=== PATIENT | female | born 1935 | race Caucasian/White ===

== ENCOUNTER → 2017-02-21 | Outpatient (CLI) | payer MEDICARE, BC | LOC: MW.CHPS 08:00 | PROVIDERS: ATTEND Plastic Surgery | DX: L71.9 Rosacea, unspecified (principal); L57.0 Actinic keratosis; L30.9 Dermatitis, unspecified; L85.3 Xerosis cutis | CPT/HCPCS: 99214 ==

== ENCOUNTER 2017-07-22 12:30 | Emergency (ER) | payer MEDICARE, BC ==
--- NOTE | 2017-07-22 13:06 | EDM.PDOC ---
ED HPI GENERAL MEDICAL PROBLEM - General Chief Complaint: Bite:Animal, Insect Stated Complaint: LT HAND BEE STING ALGERGIC Time Seen by Provider: 07/22/17 12:51 - History of Present Illness INITIAL COMMENTS - FREE TEXT/NARRATIVE: HISTORY AND PHYSICAL: History of present illness: Patient is an 82-year-old white female presents status post bee sting to her left hand she has a significant allergy to these although did not manifest any significant symptoms her EpiPen was she did not utilize it upon arrival here she is without symptoms other than the Sting to her left hand. Review of systems: As per history of present illness and below otherwise all systems reviewed and negative. Past medical history: As per history of present illness and as reviewed below otherwise noncontributory. Surgical history: As per history of present illness and as reviewed below otherwise noncontributory. Social history: No reported history of drug or alcohol abuse. Family history: As per history of present illness and as reviewed below otherwise noncontributory. Physical exam: HEENT: Atraumatic, normocephalic, pupils reactive, negative for conjunctival pallor or scleral icterus, mucous membranes moist, throat clear, neck supple, nontender, trachea midline. Lungs: Clear to auscultation, breath sounds equal bilaterally, chest nontender. Heart: S1S2, regular, negative for clicks, rubs, or JVD. Abdomen: Soft, nondistended, nontender. Negative for masses or hepatosplenomegaly. Negative for costovertebral tenderness. Pelvis: Stable nontender. Genitourinary: Deferred. Rectal: Deferred. Extremities: Atraumatic, negative for cords or calf pain. Neurovascular unremarkable. Neuro: Awake, alert, oriented. Cranial nerves II through XII unremarkable. Cerebellum unremarkable. Motor and sensory unremarkable throughout. Exam nonfocal. Diagnostics: None Therapeutics: Prednisone 40 mg by mouth Benadryl and 25 mg by mouth Impression: bee sting l hand Definitive disposition and diagnosis as appropriate pending reevaluation and review of above left 5th finger Pain Score (Numeric/FACES): 3 - Related Data Allergies Allergy/AdvReac Type Severity Reaction Status Date / Time adhesive Allergy Rash Verified 07/22/17 12:39 banana [Banana] Allergy Stomach Verified 07/22/17 12:39 Ache latex Allergy Itching Verified 07/22/17 12:39 tomato [Tomato] Allergy Hives Verified 07/22/17 12:39 Bee stins Allergy Swelling Uncoded 07/22/17 12:39 Eggs Allergy Stomach Uncoded 07/22/17 12:39 Ache Metal Allergy Rash Uncoded 07/22/17 12:39 Home Meds: Home Meds ClonazePAM [KlonoPIN] 1 tab PO BEDTIME PRN 06/23/14 [History] Estrogens, Conjugated [Premarin Vaginal Crm] 1 applic VAG ASDIRECTED PRN [History] Hydrocortisone Acetate [Anucort-HC] 1 supp RECTAL Q6HR PRN 06/23/14 [History] Losartan [Cozaar] 1 tab PO BRK 06/23/14 [History] Zolpidem Tartrate 1 tab PO ASDIRECTED PRN 06/29/15 [History] Fish Oil/[place]-3 Fatty Acids [Fish Oil] 2 each PO DAILY 07/01/15 [History] Fluticasone Propionate [Flonase Allergy Relief] 1 inh INH ASDIRECTED PRN [History] Past Medical History - Past Health History Medical/Surgical History: Denies Medical/Surgical History Other HEENT History: "Sinus sickness" Other Respiratory History: She denies, reports smoked for 50 yrs, QUIT 10 yrs ago, current cough/drainage started last week-end but improving, Encouraged to drink plenty of water and if symptoms worsen to phone surgeon's office Gastrointestinal History: Reports: Hemorrhoids Other Gastrointestinal History: Indigestion. diverticulitis Other Musculoskeletal History: Foot surgery, back pain of recent Other Psychiatric History: More excitable as I have gotten older and been living alone Other Hematologic History: Blood transfusions post delivery Other Dermatologic History: Several areas removed and or treated with topical medications - Past Surgical History GI Surgical History: Reports: Cholecystectomy, Colonoscopy Other GI Surgeries/Procedures: Partial colectomy due to diverticulitis Other Female Surgeries/Procedures: Oophorectomy Other Neurological Surgeries/Procedures: Headache free currently Social & Family History - Tobacco Use Smoking Status *Q: Never Smoker Years of Tobacco use: 50 Used Tobacco, but Quit: Yes Month Tobacco Last Used: 10 yrs - Alcohol Use Days Per Week of Alcohol Use: 0 Number of Drinks Per Day: 0 Total Drinks Per Week: 0 - Recreational Drug Use Recreational Drug Use: No Drug Use in Last 12 Months: No ED ROS GENERAL - Review of Systems Review Of Systems: ROS reveals no pertinent complaints other than HPI. ED EXAM, ANIMAL BITE - Physical Exam Exam: See Below (dictated) Course - Vital Signs Last Recorded V/S: Last Vital Signs Temp 36.6 C 07/22/17 12:39 Pulse 71 07/22/17 12:39 Resp 20 07/22/17 12:39 BP 125/71 07/22/17 12:39 Pulse Ox 93 L 07/22/17 12:39 Departure - Departure Time of Disposition: 13:05 Disposition: Home, Self-Care 01 Condition: Good Clinical Impression: Bee sting - Discharge Information Referrals: PCP,None [Primary Care Provider] - Forms: ED Department Discharge Additional Instructions: The following information is given to patients seen in the emergency department who are being discharged to home. This information is to outline your options for follow-up care. We provide all patients seen in our emergency department with a follow-up referral. The need for follow-up, as well as the timing and circumstances, are variable depending upon the specifics of your emergency department visit. If you don't have a primary care physician on staff, we will provide you with a referral. We always advise you to contact your personal physician following an emergency department visit to inform them of the circumstance of the visit and for follow-up with them and/or the need for any referrals to a consulting specialist. The emergency department will also refer you to a specialist when appropriate. This referral assures that you have the opportunity for followup care with a specialist. All of these measure are taken in an effort to provide you with optimal care, which includes your followup. Under all circumstances we always encourage you to contact your private physician who remains a resource for coordinating your care. When calling for followup care, please make the office aware that this follow-up is from your recent emergency room visit. If for any reason you are refused follow-up, please contact the [facility] emergency department at and asked to speak to the emergency department charge nurse. EpiPen Medrol Benadryl as directed follow primary medical doctor 1-2 days return as needed as discussed
[2017-07-22] MEDS ORDERED: predniSONE 20 MG Tab PO ONE (13:07)
[2017-07-22] MEDS ORDERED: diphenhydrAMINE 25 MG Cap PO ONE (13:08)
[2017-07-22 13:34] VITALS: BP 110/76
== END 2017-07-22 13:31 | disposition home or self-care (01) ==
LOC: MW.ED 12:30
DX: T63.441A Toxic effect of venom of bees, accidental (unintentional), initial encounter (principal); Z91.040 Latex allergy status; Z90.49 Acquired absence of other specified parts of digestive tract
CPT/HCPCS: 99282; A9270

== ENCOUNTER 2020-07-31 19:11 | Emergency (ER) | payer MEDICARE, BC ==
--- NOTE | 2020-07-31 19:25 | EDM.PDOC ---
ED HPI GENERAL MEDICAL PROBLEM - General Chief Complaint: ENT Problem Stated Complaint: TOOTH INFECTION Time Seen by Provider: 07/31/20 19:24 Source of Information: Reports: Patient History Limitations: Reports: No Limitations - History of Present Illness INITIAL COMMENTS - FREE TEXT/NARRATIVE: HISTORY AND PHYSICAL: History of present illness: Patient is an 84-year-old female who presents to the emergency room with complaints of left upper posterior dental pain and swelling. She has had this dental pain for approximately a week and was placed on amoxicillin 5 days ago by her dentist. She feels the abscess is not improving and she needs antibiotics which. She does have an appointment tomorrow with an carton counter feeder in [place]. Patient denies any fever, chills, headache, change in vision, syncope or near syncope. Denies any chest pain, back pain, shortness of breath or cough. Denies any abdominal pain, nausea, vomiting, diarrhea, constipation or dysuria. Patient has been eating and drinking appropriately. Review of systems: As per history of present illness and below otherwise all systems reviewed and negative. Past medical history: As per history of present illness and as reviewed below otherwise noncontributory. Surgical history: As per history of present illness and as reviewed below otherwise noncontributory. Social history: See social history for further information Family history: As per history of present illness and as reviewed below otherwise noncontributory. Physical exam: General: Well developed and well nourished. Alert and orientated x 3. Nontoxic in appearance and in no acute distress. Vital signs are stable and have been reviewed by me. Nursing notes were reviewed. HEENT: Atraumatic, normocephalic, pupils equal and reactive bilaterally, negative for conjunctival pallor or scleral icterus, mucous membranes moist, left upper posterior molar decay with gum swelling that is visible when looking at the face. Mild swelling noted to upper left cheek with tenderness. No floor tenderness. TMs normal bilaterally, throat clear, neck supple, nontender, trachea midline. No drooling or trismus noted. No meningeal signs. No hot potato voice noted. Lungs: Clear to auscultation, breath sounds equal bilaterally, chest nontender. Normal work of breathing, no accessory muscles used. Heart: S1S2, regular rate and rhythm without overt murmur Abdomen: Soft, nondistended, nontender. Skin: Intact, warm, dry. No lesions or rashes noted. Hematologic: No petechiae or purpra. Mucosa appropriate color and normal nail bed color and refill. Extremities: Atraumatic, moves all extremities per self without difficulty or deficits, negative for cords or calf pain. Neurovascular unremarkable. Neuro: Awake, alert, oriented. Cranial nerves II through XII unremarkable. Cerebellum unremarkable. Motor and sensory unremarkable throughout. Exam nonfocal. Psychiatric: Mood and affect are appropriate. Normal thought process. Answering questions appropriately. Notes: No concerns for Ludwigs Angina. Her CBC is slightly elevated, will switch her to clindamycin. Reassessment at the time of disposition demonstrates that the patient is in no acute distress. The patient is stable for discharge, counseling was provided and we discussed in great detail signs and symptoms that would prompt them to return to the Emergency Department. Medication, follow up and supportive care measures were reviewed and discussed. Voices understanding and is agreeable to plan of care. Denies any further questions or concerns at this time. Diagnostics: CBC Therapeutics: Clindamycin Prescription: Clindamycin Impression: Dental abscess Plan: 1. Please take the Clindamycin antibiotic as prescribed. (You can stop the Amoxicillin) 2. Tylenol and/or ibuprofen as needed for pain management. "Tooth Balls" have been given to you; apply along the gumline every 2-3 hours as needed. Do not swallow these; external use only. 3. Follow-up with a dentist for definitive care. Return to the ED as needed and as discussed. Definitive disposition and diagnosis as appropriate pending reevaluation and review of above. Left Upper Tooth/Teeth Pain Score (Numeric/FACES): 8 - Related Data Allergies Allergy/AdvReac Type Severity Reaction Status Date / Time adhesive Allergy Rash Verified 07/31/20 19:26 banana [Banana] Allergy Stomach Verified 07/31/20 19:26 Ache latex Allergy Itching Verified 07/31/20 19:26 meloxicam Allergy Rash Verified 07/31/20 19:26 tomato [Tomato] Allergy Hives Verified 07/31/20 19:26 Eggs Allergy Stomach Uncoded 07/31/20 19:26 Ache Metal Allergy Rash Uncoded 07/31/20 19:26 wasp stings Allergy Anaphylactic Uncoded 07/31/20 19:26 Shock Home Meds: Home Meds ClonazePAM [KlonoPIN] 1 tab PO BEDTIME PRN 06/23/14 [History] Hydrocortisone Acetate [Anucort-HC] 1 supp RECTAL Q6HR PRN 06/23/14 [History] Losartan [Cozaar] 1 tab PO BRK 06/23/14 [History] Zolpidem Tartrate 1 tab PO ASDIRECTED PRN 06/29/15 [History] Fish Oil/[place]-3 Fatty Acids [Fish Oil] 2 each PO DAILY 07/01/15 [History] Fluticasone Propionate [Flonase Allergy Relief] 1 inh INH ASDIRECTED PRN 09/23/15 [History] Acetaminophen 1 - 2 tab PO ASDIRECTED PRN 09/30/18 [History] Aspirin [Adult Aspirin] 81 mg PO DAILY 09/30/18 [History] Psyllium Husk (With Sugar) [Metamucil Powder] 1 dose PO DAILY 09/30/18 [History] Sertraline HCl 5 mg PO DAILY 09/30/18 [History] diphenhydrAMINE [Benadryl] 1 tab PO Q4H PRN 09/30/18 [History] Clindamycin HCl 300 mg PO Q6HR 5 Days #20 capsule 07/31/20 [Rx] Past Medical History - Past Health History Medical/Surgical History: Denies Medical/Surgical History HEENT History: Reports: Other (See Below) Other HEENT History: "Sinus sickness" Cardiovascular History: Reports: Heart Murmur, High Cholesterol, Hypertension, Other (See Below) (aortic valve sclerosis) Respiratory History: Reports: None Other Respiratory History: She denies, reports smoked for 50 yrs, QUIT 10 yrs ago, current cough/drainage started last week-end but improving, Encouraged to drink plenty of water and if symptoms worsen to phone surgeon's office Gastrointestinal History: Reports: Celiac Disease, Chronic Diarrhea, Diverticulosis, GERD, Hemorrhoids Other Gastrointestinal History: Indigestion. 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: Musculoskeletal History: Reports: Back Pain, Chronic, Other (See Below) Other Musculoskeletal History: Foot surgery, back pain of recent Psychiatric History: Reports: Anxiety, Depression Other Psychiatric History: More excitable as I have gotten older and been living alone Hematologic History: Reports: Blood Transfusion(s) Other Hematologic History: Blood transfusions post delivery Dermatologic History: Reports: Eczema Other Dermatologic History: Several areas removed and or treated with topical medications - Infectious Disease History Infectious Disease History: Reports: Chicken Pox, Measles, Mumps - Past Surgical History GI Surgical History: Reports: Cholecystectomy, Colonoscopy Other Neurological Surgeries/Procedures: Headache free currently Social & Family History - Family History Family Medical History: Noncontributory - Caffeine Use Caffeine Use: Reports: Coffee ED ROS ENT - Review of Systems Review Of Systems: Comprehensive ROS is negative, except as noted in HPI. ED EXAM, ENT - Physical Exam Exam: See Below (See dictation) Course - Vital Signs Last Recorded V/S: Last Vital Signs Temp 96.9 F 07/31/20 19:24 Pulse 102 H 07/31/20 19:24 Resp 18 07/31/20 19:24 BP 137/92 H 07/31/20 19:24 Pulse Ox 96 07/31/20 19:24 - Orders/Labs/Meds Labs: Laboratory Tests 07/31/20 Range/Units 20:00 WBC 12.19 H (4.0-11.0) K/uL RBC 4.75 (4.30-5.90) M/uL Hgb 15.0 (12.0-16.0) g/dL Hct 45.4 (36.0-46.0) % MCV 95.6 (80.0-98.0) fL MCH 31.6 (27.0-32.0) pg MCHC 33.0 (31.0-37.0) g/dL RDW Std Deviation 46.9 (28.0-62.0) fl RDW Coeff of [place] 13 (11.0-15.0) % Plt Count 313 (150-400) K/uL MPV 10.20 (7.40-12.00) fL Neut % (Auto) 82.1 H (48.0-80.0) % Lymph % (Auto) 9.8 L (16.0-40.0) % Thayer % (Auto) 7.9 (0.0-15.0) % Eos % (Auto) 0.1 (0.0-7.0) % Baso % (Auto) 0.1 (0.0-1.5) % Neut # (Auto) 10.0 H (1.4-5.7) K/uL Lymph # (Auto) 1.2 (0.6-2.4) K/uL Thayer # (Auto) 1.0 H (0.0-0.8) K/uL Eos # (Auto) 0.0 (0.0-0.7) K/uL Baso # (Auto) 0.0 (0.0-0.1) K/uL Nucleated RBC % 0.0 /100WBC Nucleated RBCs # 0 K/uL Meds: Medications Discontinued Medications Generic Name Dose Route Start Last Admin Trade Name Candido PRN Reason Stop Dose Admin Clindamycin HCl 600 mg 07/31/20 20:02 07/31/20 20:12 Cleocin PO 07/31/20 20:03 600 mg ONETIME ONE Administration Departure - Departure Time of Disposition: 20:14 Disposition: Home, Self-Care 01 Clinical Impression: Dental abscess - Discharge Information Prescriptions: Clindamycin HCl 300 mg PO Q6HR 5 Days #20 capsule Instructions: Dental Abscess, [id number] Referrals: yLssa Romero PA [Primary Care Provider] - Forms: ED Department Discharge Additional Instructions: The following information is given to patients seen in the emergency department who are being discharged to home. This information is to outline your options for follow-up care. We provide all patients seen in our emergency department with a follow-up referral. The need for follow-up, as well as the timing and circumstances, are variable depending upon the specifics of your emergency department visit. If you don't have a primary care physician on staff, we will provide you with a referral. We always advise you to contact your personal physician following an emergency department visit to inform them of the circumstance of the visit and for follow-up with them and/or the need for any referrals to a consulting specialist. The emergency department will also refer you to a specialist when appropriate. This referral assures that you have the opportunity for follow-up care with a specialist. All of these measure are taken in an effort to provide you with optimal care, which includes your follow-up. Under all circumstances we always encourage you to contact your private physician who remains a resource for coordinating your care. When calling for follow-up care, please make the office aware that this follow-up is from your recent emergency room visit. If for any reason you are refused follow-up, please contact the [facility] Emergency Department at and asked to speak to the emergency department charge nurse. [facility] [address] [place] [address] [facility] [address] [place] [address] Thank you for choosing the [facility] emergency department in [place] for your medical needs today. It was a pleasure caring for you. Today you were seen in the emergency department for dental abscess. 1. Please take the antibiotic as prescribed. (Stop the Amoxicillin) 2. Tylenol and/or ibuprofen as needed for pain management. "Tooth Balls" have been given to you; apply along the gumline every 2-3 hours as needed. Do not swallow these; external use only. 3. Follow-up with a dentist for definitive care. Return to the ED as needed and as discussed. Sepsis Event Note (ED) - Focused Exam Vital Signs: Vital Signs Temp Pulse Resp BP Pulse Ox 07/31/20 19:24 96.9 F 102 H 18 137/92 H 96
[2020-07-31] MEDS ORDERED: Clindamycin HCl 150 MG Cap PO ONE (20:02)
[2020-07-31] MEDS ORDERED: Lidocaine 2% Viscous Solution 15 ML Cup PO ONE (20:15)
[2020-07-31] MEDS ORDERED: Benzocaine 20% Topical Spray UD MUCMEM ONE (20:15)
[2020-07-31 20:34] VITALS: BP 145/95; PULSE 112
== END 2020-07-31 20:30 | disposition home or self-care (01) ==
LOC: MW.ED 19:11
DX: K04.7 Periapical abscess without sinus (principal); F41.9 Anxiety disorder, unspecified; F32.9 Major depressive disorder, single episode, unspecified; K21.9 Gastro-esophageal reflux disease without esophagitis; E78.00 Pure hypercholesterolemia, unspecified; I10 Essential (primary) hypertension; Z79.899 Other long term (current) drug therapy; Z79.82 Long term (current) use of aspirin; Z91.040 Latex allergy status; Z91.018 Allergy to other foods; Z88.6 Allergy status to analgesic agent; Z91.012 Allergy to eggs; Z91.038 Other insect allergy status
CPT/HCPCS: 36415; 85025; 99283; A9270

== ENCOUNTER 2021-11-27 10:31 | Emergency (ER) | payer MEDICARE, BC | END 2021-11-27 13:42 | disposition left against medical advice (07) | LOC: MW.ED 10:31 | DX: Z53.21 Procedure and treatment not carried out due to patient leaving prior to being seen by health care provider (principal) ==

== ENCOUNTER 2022-03-30 12:16 | Emergency (ER) | payer MEDICARE, BC ==
[2022-03-30] MEDS ORDERED: Acetaminophen 500 MG Tab PO ONE (12:54)
[2022-03-30 13:56] LABS: CARBON DIOXIDE,CO2 27.4 mmol/L (21.0-32.0); POTASSIUM,K 3.8 mmol/L (3.5-5.1)
[2022-03-30 16:43] VITALS: BP 144/83; PULSE 67
== END 2022-03-30 15:45 | disposition home or self-care (01) ==
LOC: MW.ED 12:16
DX: S00.83XA Contusion of other part of head, initial encounter (principal); I10 Essential (primary) hypertension; Z90.49 Acquired absence of other specified parts of digestive tract; Z79.899 Other long term (current) drug therapy; Z79.82 Long term (current) use of aspirin; Z91.048 Other nonmedicinal substance allergy status; Z91.040 Latex allergy status; Z91.018 Allergy to other foods; Z91.012 Allergy to eggs; Z88.6 Allergy status to analgesic agent; Z91.030 Bee allergy status
CPT/HCPCS: 36415; 70450; 71045; 72125; 80053; 83735; 84443; 84484; 85025; 93005; 99284; A9270

== ENCOUNTER 2022-04-10 18:30 | Emergency (ER) | payer MEDICARE, BC ==
[2022-04-10] MEDS ORDERED: Diphtheria,Pertussis(Acell),Tetanus Vaccine 0.5 ML Syringe IM ONE (18:47)
[2022-04-10] MEDS ORDERED: Lidocaine/Epineph/Tetracaine 3 ML Syringe TOP ONE (19:22)
[2022-04-10 21:05] VITALS: BP 128/75; PULSE 76
== END 2022-04-10 21:05 | disposition home or self-care (01) ==
LOC: MW.ED 18:30
DX: S01.01XA Laceration without foreign body of scalp, initial encounter (principal); I10 Essential (primary) hypertension; E78.00 Pure hypercholesterolemia, unspecified; K21.9 Gastro-esophageal reflux disease without esophagitis; E03.9 Hypothyroidism, unspecified; Z23 Encounter for immunization; Z88.8 Allergy status to other drugs, medicaments and biological substances; Z88.0 Allergy status to penicillin; Z79.899 Other long term (current) drug therapy; Z79.82 Long term (current) use of aspirin; W19.XXXA Unspecified fall, initial encounter
CPT/HCPCS: 12002; 70450; 72125; 90471; 90715; 99284; A9270

== ENCOUNTER 2022-06-24 14:33 | Inpatient (IN) | payer MEDICARE, BC ==
[2022-06-24] MEDS ORDERED: Sodium Chloride 0.9% 1,000 ML IV ONE (14:36)
[2022-06-24] MEDS ORDERED: Sodium Chloride 0.9% 10 ML Syringe FLUSH PRN (14:36)
[2022-06-24] MEDS ORDERED: Sodium Chloride 0.9% 2.5 ML Syringe FLUSH PRN (14:36)
[2022-06-24] MEDS ORDERED: Ondansetron 4 MG/2 ML SDV IVPUSH ONE (14:49)
[2022-06-24 15:23] LABS: CARBON DIOXIDE,CO2 24.5 mmol/L (21.0-32.0); POTASSIUM,K 4.2 mmol/L (3.5-5.1)
[2022-06-24] MEDS ORDERED: Dexamethasone 4 MG/ML SDV IVPUSH ONE (15:59)
[2022-06-24] MEDS ORDERED: REMDESIVIR 200 MG in Sodium Chloride 0.9% 250 ML IV ONE ×2 (15:59→17:45)
[2022-06-24] MEDS ORDERED: Ondansetron 4 MG/2 ML SDV IVPUSH PRN (16:50)
[2022-06-24] MEDS ORDERED: Albuterol/Ipratropium 3.0-0.5 MG/3 ML Neb Soln NEB PRN (16:50)
[2022-06-24] MEDS ORDERED: ClonazePAM 1 MG Tab PO PRN (17:37)
[2022-06-24] MEDS: Enoxaparin 40 MG/0.4 ML Syringe SUBCUT SCH (18:18)
[2022-06-25] MEDS: Levothyroxine 25 MCG Tab PO SCH ×2 (06:26→06:49)
[2022-06-25 07:30] LABS: CARBON DIOXIDE,CO2 28.1 mmol/L (21.0-32.0); POTASSIUM,K 4.2 mmol/L (3.5-5.1)
[2022-06-25] MEDS ORDERED: Magnesium Sulfate/Water 2 GM in Premix Bag 1 BAG IV ONE (09:04)
[2022-06-25] MEDS: Sertraline 50 MG Tab PO SCH (09:43)
[2022-06-25] MEDS: Dexamethasone 4 MG Tab PO SCH (09:43)
[2022-06-25] MEDS: Aspirin 81 MG Tab.EC PO SCH (09:43)
[2022-06-25] MEDS: Tolterodine 2 MG Cap.ER PO SCH (09:44)
[2022-06-25] MEDS ORDERED: REMDESIVIR 100 MG in Sodium Chloride 0.9% 100 ML IV SCH (18:00)
[2022-06-25] MEDS: Enoxaparin 40 MG/0.4 ML Syringe SUBCUT SCH (20:15)
[2022-06-26] MEDS: Levothyroxine 25 MCG Tab PO SCH (06:34)
[2022-06-26 07:39] LABS: CARBON DIOXIDE,CO2 26.7 mmol/L (21.0-32.0); POTASSIUM,K 3.9 mmol/L (3.5-5.1)
[2022-06-26] MEDS: Dexamethasone 4 MG Tab PO SCH (08:11)
[2022-06-26] MEDS: Tolterodine 2 MG Cap.ER PO SCH (08:12)
[2022-06-26] MEDS: Sertraline 50 MG Tab PO SCH (08:12)
[2022-06-26] MEDS: Aspirin 81 MG Tab.EC PO SCH (08:12)
[2022-06-26 11:35] VITALS: BP 112/67; PULSE 59
== END 2022-06-26 14:40 | disposition home or self-care (01) | DRG 177 ==
LOC: MW.ED 14:33 → MW.MS 15:58
PROVIDERS: ADMIT Student in an Organized Health Care Education/Training Program; ATTEND Family Medicine
PROC: XW033E5 Introduction of Remdesivir Anti-infective into Peripheral Vein, Percutaneous Approach, New Technology Group 5 (ICD-10-PCS; principal; 2022-06-24)
PROC: 3E0333Z Introduction of Anti-inflammatory into Peripheral Vein, Percutaneous Approach (ICD-10-PCS; 2022-06-24)
PROC: 3E0DX3Z Introduction of Anti-inflammatory into Mouth and Pharynx, External Approach (ICD-10-PCS; 2022-06-25)
DX: U07.1 COVID-19 (principal); R09.02 Hypoxemia; J96.01 Acute respiratory failure with hypoxia; I10 Essential (primary) hypertension; F32.A Depression, unspecified; K21.9 Gastro-esophageal reflux disease without esophagitis; K90.0 Celiac disease; E03.9 Hypothyroidism, unspecified; E78.00 Pure hypercholesterolemia, unspecified; M54.9 Dorsalgia, unspecified; Z79.899 Other long term (current) drug therapy; G89.29 Other chronic pain; Z91.038 Other insect allergy status; F41.9 Anxiety disorder, unspecified; Z88.8 Allergy status to other drugs, medicaments and biological substances; K57.90 Diverticulosis of intestine, part unspecified, without perforation or abscess without bleeding; Z91.048 Other nonmedicinal substance allergy status; Z91.040 Latex allergy status; Z91.012 Allergy to eggs; Z91.018 Allergy to other foods; Z91.030 Bee allergy status; Z79.82 Long term (current) use of aspirin; Z79.890 Hormone replacement therapy; Z87.891 Personal history of nicotine dependence; Z90.49 Acquired absence of other specified parts of digestive tract; Z90.710 Acquired absence of both cervix and uterus
CPT/HCPCS: 36415; 80053; 82803; 83605; 84484; 85025; 93005; J2405; J3490; J7030; U0002; 71045; 71045-26; 83735; 93010; 96374; 97162-GP; 99284; 99285-25; A9270-GY; J0248; J1100; J1650; J3475; J7050; J8540

== ENCOUNTER 2022-11-15 11:22 | Inpatient (IN) | payer MEDICARE, BC ==
[2022-11-15 12:25] LABS: CORONAVIRUS COVID-19 NAA NEGATIVE (NEGATIVE); INFLUENZA A NAA NEGATIVE (NEGATIVE); INFLUENZA B NAA NEGATIVE (NEGATIVE); RESPIRATORY SYNCYTIAL VIR NAA NEGATIVE (NEGATIVE)
[2022-11-15 12:29] LABS: CARBON DIOXIDE,CO2 27.8 mmol/L (21.0-32.0); POTASSIUM,K 4.5 mmol/L (3.5-5.1)
[2022-11-15] MEDS ORDERED: Iopamidol 755 MG/ML 500 ML Multipack Bottle IVPUSH ONE (16:53)
[2022-11-15] MEDS ORDERED: metroNIDAZOLE/Normal Saline 500 MG in Premix Bag 1 BAG IV ONE (19:44)
[2022-11-15] MEDS: cefTRIAXone 1 GM in Sodium Chloride 0.9% 50 ML IV ONE ×2 (20:38→21:08)
[2022-11-15] MEDS: Azithromycin 500 MG in Sodium Chloride 0.9% 250 ML IV SCH (23:49)
[2022-11-16] MEDS ORDERED: Sodium Chloride 0.9% 2.5 ML Syringe FLUSH PRN (08:28)
[2022-11-16] MEDS ORDERED: Sodium Chloride 0.9% 10 ML Syringe FLUSH PRN (08:28)
[2022-11-16] MEDS ORDERED: Albuterol/Ipratropium 3.0-0.5 MG/3 ML Neb Soln NEB PRN (08:30)
[2022-11-16] MEDS ORDERED: Acetaminophen 325 MG Tab PO PRN (08:45)
[2022-11-16] MEDS ORDERED: Ondansetron 4 MG/2 ML SDV IVPUSH PRN (08:45)
[2022-11-16] MEDS ORDERED: tiZANidine 4 MG Tab PO PRN (09:00)
[2022-11-16] MEDS ORDERED: Polyethylene Glycol 3350 Powder 17 GM Packet PO PRN (09:00)
[2022-11-16] MEDS: Sertraline 50 MG Tab PO SCH (10:01)
[2022-11-16] MEDS: Aspirin 81 MG Tab.EC PO SCH (10:01)
[2022-11-16] MEDS ORDERED: cefTRIAXone 1 GM in Sodium Chloride 0.9% 50 ML IV SCH (20:00)
[2022-11-16] MEDS ORDERED: TOLTERODINE TARTRATE 4 MG PO SCH (21:00)
[2022-11-16] MEDS ORDERED: ClonazePAM 1 MG Tab PO PRN (21:00)
[2022-11-16] MEDS: Azithromycin 500 MG in Sodium Chloride 0.9% 250 ML IV SCH (22:58)
[2022-11-17 06:52] LABS: CARBON DIOXIDE,CO2 28.4 mmol/L (21.0-32.0); POTASSIUM,K 3.8 mmol/L (3.5-5.1)
[2022-11-17] MEDS ORDERED: Levothyroxine 25 MCG Tab PO SCH (07:30)
[2022-11-17 07:58] VITALS: BP 166/92; PULSE 89
[2022-11-17] MEDS: Aspirin 81 MG Tab.EC PO SCH (08:33)
[2022-11-17] MEDS: Sertraline 50 MG Tab PO SCH (08:33)
== END 2022-11-17 11:40 | disposition home or self-care (01) | DRG 177 ==
LOC: MW.ED 11:22 → MW.MS 20:23
PROVIDERS: ADMIT Internal Medicine; ATTEND Internal Medicine
DX: J69.0 Pneumonitis due to inhalation of food and vomit (principal); J96.21 Acute and chronic respiratory failure with hypoxia; J18.9 Pneumonia, unspecified organism; Z20.822 Contact with and (suspected) exposure to COVID-19; E78.00 Pure hypercholesterolemia, unspecified; I10 Essential (primary) hypertension; K52.9 Noninfective gastroenteritis and colitis, unspecified; K21.9 Gastro-esophageal reflux disease without esophagitis; Z86.711 Personal history of pulmonary embolism; K57.90 Diverticulosis of intestine, part unspecified, without perforation or abscess without bleeding; G89.29 Other chronic pain; M54.9 Dorsalgia, unspecified; F41.9 Anxiety disorder, unspecified; F32.A Depression, unspecified; E03.9 Hypothyroidism, unspecified; Z86.19 Personal history of other infectious and parasitic diseases; Z90.49 Acquired absence of other specified parts of digestive tract; Z90.710 Acquired absence of both cervix and uterus; Z87.891 Personal history of nicotine dependence; Z91.09 Other allergy status, other than to drugs and biological substances; Z91.018 Allergy to other foods; Z91.040 Latex allergy status; Z91.038 Other insect allergy status; Z79.82 Long term (current) use of aspirin; Z79.890 Hormone replacement therapy; Z79.899 Other long term (current) drug therapy; R13.10 Dysphagia, unspecified
CPT/HCPCS: 0241U; 36415; 71045; 71275; 80048; 80053; 81001; 83605; 83735; 83880; 84100; 85025; 85379; 87040; 93306; 96365; 96368; 97110; 97161; 97530; 99285; A9270-GY; J0456; J0696; J3490; J7050; Q9967

== ENCOUNTER 2023-02-12 05:05 | Inpatient (IN) | payer MEDICARE, BC ==
[2023-02-12] MEDS ORDERED: Ondansetron 4 MG/2 ML SDV IVPUSH ONE (05:56)
[2023-02-12] MEDS ORDERED: fentaNYL 50 MCG/ML SDV IVPUSH ONE (05:56)
[2023-02-12 06:32] LABS: POTASSIUM,K 4.1 mmol/L (3.5-5.1)
[2023-02-12] MEDS ORDERED: HYDROmorphone 1 MG/ML Syringe IVPUSH ONE (07:58)
[2023-02-12] MEDS ORDERED: Iopamidol 755 MG/ML 500 ML Multipack Bottle IVPUSH STA (09:31)
[2023-02-12 09:37] LABS: CORONAVIRUS COVID-19 NAA NEGATIVE (NEGATIVE); INFLUENZA A NAA NEGATIVE (NEGATIVE); INFLUENZA B NAA NEGATIVE (NEGATIVE); RESPIRATORY SYNCYTIAL VIR NAA NEGATIVE (NEGATIVE)
[2023-02-12] MEDS ORDERED: Piperacillin/Tazobactam 3.375 GM in Sodium Chloride 0.9% 100 ML IV ONE (11:58)
[2023-02-12] MEDS ORDERED: methylPREDNISolone Sodium Succinate 125 MG/2 ML SDV IVPUSH ONE (12:15)
[2023-02-12] MEDS ORDERED: Metoclopramide 10 MG/2 ML SDV IVPUSH ONE (12:17)
[2023-02-12] MEDS: Albuterol/Ipratropium 3.0-0.5 MG/3 ML Neb Soln NEB ONE ×2 (12:30→15:25)
[2023-02-12] MEDS ORDERED: Sodium Chloride 0.9% 2.5 ML Syringe FLUSH PRN (13:04)
[2023-02-12] MEDS ORDERED: Docusate Sodium 100 MG Cap PO PRN (13:04)
[2023-02-12] MEDS ORDERED: Ondansetron 4 MG/2 ML SDV IVPUSH PRN (13:04)
[2023-02-12] MEDS ORDERED: Sodium Chloride 0.9% 10 ML Syringe FLUSH PRN (13:04)
[2023-02-12] MEDS ORDERED: Polyethylene Glycol 3350 Powder 17 GM Packet PO PRN (13:04)
[2023-02-12] MEDS ORDERED: Morphine 2 MG/ML SYRINGE IVPUSH PRN (13:04)
[2023-02-12] MEDS ORDERED: Acetaminophen 325 MG Tab PO SCH (13:15)
[2023-02-12] MEDS: Acetylcysteine 20% 200 MG/ML 4 ML Nebulizer Soln SDV NEB SCH ×2 (15:25→22:50)
[2023-02-12] MEDS: Piperacillin/Tazobactam 3.375 GM in Sodium Chloride 0.9% 100 ML IV SCH (18:24)
[2023-02-12] MEDS: Albuterol/Ipratropium 3.0-0.5 MG/3 ML Neb Soln NEB PRN (21:27)
[2023-02-12] MEDS: Acetaminophen 325 MG Tab PO SCH (21:27)
[2023-02-13] MEDS ORDERED: methylPREDNISolone Sodium Succinate 40 MG/1 ML SDV ONE (00:14)
[2023-02-13] MEDS: methylPREDNISolone Sodium Succinate 40 MG/1 ML SDV IVPUSH SCH ×2 (00:19→11:49)
[2023-02-13] MEDS ORDERED: Sodium Chloride 0.9% 100 ML ONE ×2 (00:38→05:20)
[2023-02-13] MEDS: Piperacillin/Tazobactam 3.375 GM in Sodium Chloride 0.9% 100 ML IV SCH ×2 (00:42→05:53)
[2023-02-13] MEDS ORDERED: Acetaminophen 325 MG Tab ONE (02:50)
[2023-02-13] MEDS: Acetaminophen 325 MG Tab PO SCH ×4 (03:14→20:44)
[2023-02-13 06:37] LABS: CARBON DIOXIDE,CO2 24.9 mmol/L (21.0-32.0); POTASSIUM,K 4.3 mmol/L (3.5-5.1)
[2023-02-13] MEDS ORDERED: Sodium Chloride 0.9% 1,000 ML IV ONE (08:00)
[2023-02-13] MEDS: Sertraline 50 MG Tab PO SCH (09:00)
[2023-02-13] MEDS: Heparin Sodium 5,000 Units/ML Vial SUBCUT SCH ×2 (10:31→20:45)
[2023-02-13] MEDS: Acetylcysteine 20% 200 MG/ML 4 ML Nebulizer Soln SDV NEB SCH ×4 (10:52→20:44)
[2023-02-13] MEDS: Piperacillin/Tazobactam 2.25 GM in Sodium Chloride 0.9% 50 ML IV SCH ×2 (11:49→18:09)
[2023-02-13] MEDS: Albuterol/Ipratropium 3.0-0.5 MG/3 ML Neb Soln NEB PRN ×2 (12:30→17:31)
[2023-02-13] MEDS: ClonazePAM 1 MG Tab PO PRN (20:44)
[2023-02-14] MEDS: Piperacillin/Tazobactam 2.25 GM in Sodium Chloride 0.9% 50 ML IV SCH ×4 (01:30→17:06)
[2023-02-14] MEDS: Acetaminophen 325 MG Tab PO SCH ×5 (01:31→20:46)
[2023-02-14] MEDS: methylPREDNISolone Sodium Succinate 40 MG/1 ML SDV IVPUSH SCH ×2 (01:31→11:35)
[2023-02-14] MEDS: oxyCODONE 5 MG Tab PO PRN (01:49)
[2023-02-14 06:31] LABS: CARBON DIOXIDE,CO2 27.6 mmol/L (21.0-32.0); POTASSIUM,K 4.2 mmol/L (3.5-5.1)
[2023-02-14] MEDS: Albuterol/Ipratropium 3.0-0.5 MG/3 ML Neb Soln NEB PRN ×4 (06:41→21:43)
[2023-02-14] MEDS: Acetylcysteine 20% 200 MG/ML 4 ML Nebulizer Soln SDV NEB SCH ×4 (06:42→21:44)
[2023-02-14] MEDS: Levothyroxine 25 MCG Tab PO SCH (06:43)
[2023-02-14] MEDS: Heparin Sodium 5,000 Units/ML Vial SUBCUT SCH ×2 (08:40→20:47)
[2023-02-14] MEDS: Sertraline 50 MG Tab PO SCH (08:40)
[2023-02-14] MEDS: tiZANidine 4 MG Tab PO PRN (20:46)
[2023-02-14] MEDS: ClonazePAM 1 MG Tab PO PRN (20:47)
[2023-02-15] MEDS: methylPREDNISolone Sodium Succinate 40 MG/1 ML SDV IVPUSH SCH (00:18)
[2023-02-15] MEDS: Piperacillin/Tazobactam 2.25 GM in Sodium Chloride 0.9% 50 ML IV SCH ×2 (00:18→05:24)
[2023-02-15] MEDS: Acetaminophen 325 MG Tab PO SCH ×4 (02:40→20:50)
[2023-02-15 06:41] LABS: CARBON DIOXIDE,CO2 27.6 mmol/L (21.0-32.0); POTASSIUM,K 4.7 mmol/L (3.5-5.1)
[2023-02-15] MEDS: Albuterol/Ipratropium 3.0-0.5 MG/3 ML Neb Soln NEB PRN (06:50)
[2023-02-15] MEDS: Acetylcysteine 20% 200 MG/ML 4 ML Nebulizer Soln SDV NEB SCH (06:50)
[2023-02-15] MEDS: Levothyroxine 25 MCG Tab PO SCH (06:50)
[2023-02-15] MEDS: predniSONE 20 MG Tab PO SCH (08:52)
[2023-02-15] MEDS: Pantoprazole 40 MG Tab.CR PO SCH (08:54)
[2023-02-15] MEDS: Sertraline 50 MG Tab PO SCH (08:57)
[2023-02-15] MEDS: Heparin Sodium 5,000 Units/ML Vial SUBCUT SCH ×2 (08:58→20:51)
[2023-02-15] MEDS ORDERED: Polyethylene Glycol 3350 Powder 17 GM Packet PO PRN (09:52)
[2023-02-15] MEDS: Amoxicillin/Clavulanate K 875-125 MG Tab PO SCH (16:18)
[2023-02-15] MEDS: ClonazePAM 1 MG Tab PO PRN (20:50)
[2023-02-15] MEDS: tiZANidine 4 MG Tab PO PRN (20:52)
[2023-02-16] MEDS: Acetaminophen 325 MG Tab PO SCH ×4 (02:43→20:09)
[2023-02-16] MEDS: Amoxicillin/Clavulanate K 875-125 MG Tab PO SCH ×2 (05:57→16:28)
[2023-02-16] MEDS ORDERED: Pantoprazole 40 MG Tab.CR ONE (06:39)
[2023-02-16] MEDS: Pantoprazole 40 MG Tab.CR PO SCH (06:41)
[2023-02-16] MEDS: Levothyroxine 25 MCG Tab PO SCH (06:42)
[2023-02-16 08:10] LABS: CARBON DIOXIDE,CO2 31.1 mmol/L (21.0-32.0); POTASSIUM,K 3.7 mmol/L (3.5-5.1)
[2023-02-16] MEDS: Sertraline 50 MG Tab PO SCH (08:30)
[2023-02-16] MEDS: Heparin Sodium 5,000 Units/ML Vial SUBCUT SCH ×2 (08:31→20:15)
[2023-02-16] MEDS: predniSONE 20 MG Tab PO SCH (08:31)
[2023-02-16] MEDS: ClonazePAM 1 MG Tab PO PRN (21:15)
[2023-02-17] MEDS: Acetaminophen 325 MG Tab PO SCH ×4 (01:41→21:33)
[2023-02-17] MEDS: Levothyroxine 25 MCG Tab PO SCH ×2 (06:12→06:42)
[2023-02-17] MEDS: Pantoprazole 40 MG Tab.CR PO SCH ×2 (06:12→06:42)
[2023-02-17] MEDS ORDERED: predniSONE 20 MG Tab ONE (08:57)
[2023-02-17] MEDS: Sertraline 50 MG Tab PO SCH (09:00)
[2023-02-17] MEDS: Heparin Sodium 5,000 Units/ML Vial SUBCUT SCH ×2 (09:00→21:35)
[2023-02-17] MEDS: predniSONE 20 MG Tab PO SCH (09:00)
[2023-02-17] MEDS: ClonazePAM 1 MG Tab PO PRN (21:33)
[2023-02-17] MEDS: Melatonin 3 MG Tab PO SCH (21:33)
[2023-02-17] MEDS: oxyCODONE 5 MG Tab PO PRN (23:57)
[2023-02-18] MEDS: Acetaminophen 325 MG Tab PO SCH ×4 (02:19→21:02)
[2023-02-18] MEDS: Levothyroxine 25 MCG Tab PO SCH (06:51)
[2023-02-18] MEDS ORDERED: predniSONE 20 MG Tab ONE (09:10)
[2023-02-18] MEDS ORDERED: Pantoprazole 40 MG Tab.CR ONE (09:10)
[2023-02-18] MEDS: predniSONE 20 MG Tab PO SCH (09:14)
[2023-02-18] MEDS: Sertraline 50 MG Tab PO SCH (09:14)
[2023-02-18] MEDS: Heparin Sodium 5,000 Units/ML Vial SUBCUT SCH ×2 (09:14→21:00)
[2023-02-18] MEDS: Pantoprazole 40 MG Tab.CR PO SCH (09:14)
[2023-02-18] MEDS: ClonazePAM 1 MG Tab PO PRN (21:00)
[2023-02-18] MEDS: Melatonin 3 MG Tab PO SCH (21:00)
[2023-02-19] MEDS: oxyCODONE 5 MG Tab PO PRN (00:26)
[2023-02-19] MEDS: Acetaminophen 325 MG Tab PO SCH ×2 (03:36→09:11)
[2023-02-19] MEDS: Levothyroxine 25 MCG Tab PO SCH (06:38)
[2023-02-19] MEDS ORDERED: Pantoprazole 40 MG Tab.CR PO SCH (07:30)
[2023-02-19] MEDS: Sertraline 50 MG Tab PO SCH (09:09)
[2023-02-19] MEDS: Heparin Sodium 5,000 Units/ML Vial SUBCUT SCH (09:10)
[2023-02-19] MEDS ORDERED: Calcium Carbonate 500 MG Tab.Chew PO PRN (09:55)
[2023-02-19 12:06] VITALS: BP 112/59; PULSE 73
== END 2023-02-19 13:58 | DRG 189 ==
LOC: MW.ED 05:05 → MW.MS 12:26
PROVIDERS: ADMIT Hospitalist; ATTEND Hospitalist
DX: J96.01 Acute respiratory failure with hypoxia (principal); J69.0 Pneumonitis due to inhalation of food and vomit; J84.9 Interstitial pulmonary disease, unspecified; S42.201A Unspecified fracture of upper end of right humerus, initial encounter for closed fracture; T17.590A Other foreign object in bronchus causing asphyxiation, initial encounter; J47.1 Bronchiectasis with (acute) exacerbation; N30.00 Acute cystitis without hematuria; N17.9 Acute kidney failure, unspecified; I10 Essential (primary) hypertension; E03.9 Hypothyroidism, unspecified; F41.9 Anxiety disorder, unspecified; F32.A Depression, unspecified; E78.00 Pure hypercholesterolemia, unspecified; G89.29 Other chronic pain; T17.908A Unspecified foreign body in respiratory tract, part unspecified causing other injury, initial encounter; M54.9 Dorsalgia, unspecified; Z20.822 Contact with and (suspected) exposure to COVID-19; J43.8 Other emphysema; I35.0 Nonrheumatic aortic (valve) stenosis; W19.XXXA Unspecified fall, initial encounter; Z79.82 Long term (current) use of aspirin; Z79.899 Other long term (current) drug therapy; Z91.012 Allergy to eggs; Z91.040 Latex allergy status; Z87.891 Personal history of nicotine dependence; Z88.8 Allergy status to other drugs, medicaments and biological substances; Z91.018 Allergy to other foods; Z90.49 Acquired absence of other specified parts of digestive tract; Z90.710 Acquired absence of both cervix and uterus; Z98.890 Other specified postprocedural states; Z90.721 Acquired absence of ovaries, unilateral
CPT/HCPCS: 0241U; 36415; 51798; 70450; 70450-26; 71045; 71045-26; 71275; 71275-26; 72125; 72125-26; 73020-26-RT; 73020-RT; 73060-26-RT; 73060-RT; 73200-26-RT; 73200-RT; 80048; 80053; 81001; 82947; 83605; 83735; 84484; 85025; 85379; 87040; 87086; 92610-GN; 93005; 93010; 94640; 96365; 96375; 97110-GP; 97161-GP; 97530-GP; 99285; 99285-25; A9270-GY; J1170; J1644; J2405; J2543; J2765; J2920; J2930; J3010; J3490; J7030; J7620-GY; Q9967; U0002

== ENCOUNTER 2023-07-24 23:35 | Observation (INO) | payer MEDICARE, BC ==
[2023-07-25] MEDS ORDERED: Ibuprofen 600 MG Tab PO ONE (02:29)
[2023-07-25] MEDS ORDERED: Acetaminophen 325 MG Tab PO PRN (05:17)
[2023-07-25] MEDS ORDERED: Sodium Chloride 0.9% 10 ML Syringe FLUSH PRN (08:08)
[2023-07-25] MEDS ORDERED: Sodium Chloride 0.9% 2.5 ML Syringe FLUSH PRN (08:08)
[2023-07-25] MEDS ORDERED: Ondansetron 4 MG/2 ML SDV IVPUSH PRN (08:15)
[2023-07-25 08:27] LABS: BASOPHILS PERCENT AUTO 0.5 % (0.0-1.5); EOSINOPHILS ABSOLUTE AUTO 0.2 K/uL (0.0-0.7); EOSINOPHILS PERCENT AUTO 2.6 % (0.0-7.0); HEMATOCRIT 38.1 % (36.0-46.0); HEMOGLOBIN 12.7 g/dL (12.0-16.0); LYMPHOCYTES ABSOLUTE AUTO 1.9 K/uL (0.6-2.4); LYMPHOCYTES PERCENT AUTO 29.5 % (16.0-40.0); MEAN CORPUSCULAR HEMOGLOBIN 29.5 pg (27.0-32.0); MEAN CORPUSCULAR HGB CONC 33.3 g/dL (31.0-37.0); MEAN CORPUSCULAR VOLUME 88.6 fL (80.0-98.0); MONOCYTES ABSOLUTE AUTO 0.6 K/uL (0.0-0.8); MONOCYTES PERCENT AUTO 9.6 % (0.0-15.0); NEUTROPHILS ABSOLUTE AUTO 3.8 K/uL (1.4-5.7); NEUTROPHILS PERCENT AUTO 57.8 % (48.0-80.0); NRBC ABSOLUTE 0 K/uL; PLATELET COUNT,PLT 270 K/uL (150-400); WHITE BLOOD CELL COUNT,WBC 6.55 K/uL (4.0-11.0)
[2023-07-25 08:48] LABS: CALCIUM 8.3 mg/dL (8.5-10.1); CARBON DIOXIDE,CO2 26.8 mmol/L (21.0-32.0); CREATININE 0.9 mg/dL (0.6-1.0); EST CRCL DRUG DOSING (CG) 35.05 mL/min; POTASSIUM,K 3.3 mmol/L (3.5-5.1)
[2023-07-25 11:59] VITALS: BP 135/90; PULSE 88
== END 2023-07-25 15:20 | disposition home health service (06) ==
LOC: MW.ED 23:35 → MW.MS 07-25 02:38
PROVIDERS: ADMIT Internal Medicine; ATTEND Internal Medicine
DX: M71.21 Synovial cyst of popliteal space [Baker], right knee (principal); R01.1 Cardiac murmur, unspecified; I10 Essential (primary) hypertension; E03.9 Hypothyroidism, unspecified; F41.9 Anxiety disorder, unspecified; F32.A Depression, unspecified; K21.9 Gastro-esophageal reflux disease without esophagitis; Z91.09 Other allergy status, other than to drugs and biological substances; Z88.8 Allergy status to other drugs, medicaments and biological substances; Z91.040 Latex allergy status; Z91.012 Allergy to eggs; Z91.018 Allergy to other foods; Z79.82 Long term (current) use of aspirin; Z79.890 Hormone replacement therapy; Z79.899 Other long term (current) drug therapy
CPT/HCPCS: 36415; 73562; 80048; 85025; 93971; 97162; 99285; A9270; G0378; 99283

== ENCOUNTER 2023-07-30 10:01 | Emergency (ER) | payer MEDICARE, BC ==
[2023-07-30] MEDS ORDERED: Acetaminophen/oxyCODONE 325-5 MG Tab PO ONE (10:07)
[2023-07-30 10:16] LABS: BASOPHILS PERCENT AUTO 0.4 % (0.0-1.5); EOSINOPHILS ABSOLUTE AUTO 0.3 K/uL (0.0-0.7); EOSINOPHILS PERCENT AUTO 4.2 % (0.0-7.0); HEMATOCRIT 36.3 % (36.0-46.0); HEMOGLOBIN 11.9 g/dL (12.0-16.0); LYMPHOCYTES ABSOLUTE AUTO 1.7 K/uL (0.6-2.4); LYMPHOCYTES PERCENT AUTO 24.1 % (16.0-40.0); MEAN CORPUSCULAR HEMOGLOBIN 29.2 pg (27.0-32.0); MEAN CORPUSCULAR HGB CONC 32.8 g/dL (31.0-37.0); MEAN CORPUSCULAR VOLUME 89.2 fL (80.0-98.0); MONOCYTES ABSOLUTE AUTO 0.5 K/uL (0.0-0.8); MONOCYTES PERCENT AUTO 7.3 % (0.0-15.0); NEUTROPHILS ABSOLUTE AUTO 4.6 K/uL (1.4-5.7); NRBC ABSOLUTE 0 K/uL; PLATELET COUNT,PLT 274 K/uL (150-400); RED BLOOD CELL COUNT 4.07 M/uL (4.30-5.90); WHITE BLOOD CELL COUNT,WBC 7.22 K/uL (4.0-11.0)
[2023-07-30 10:35] LABS: INR 1.17 (0.86-1.11); PTT,PARTIAL THROMBOPLSTIN TIME 29.1 SEC (23.9-30.7)
[2023-07-30 11:08] LABS: A/G RATIO 1.1 (0.9-1.6); ALBUMIN 3.4 g/dL (3.4-5.0); BILIRUBIN TOTAL 0.5 mg/dL (0.2-1.0); CALCIUM 8.7 mg/dL (8.5-10.1); CARBON DIOXIDE,CO2 28.8 mmol/L (21.0-32.0); EST CRCL DRUG DOSING (CG) 34.32 mL/min; MAGNESIUM 1.7 mg/dL (1.8-2.4); POTASSIUM,K 3.8 mmol/L (3.5-5.1); PROTEIN TOTAL,TP 6.6 g/dL (6.4-8.2); TSH ULTRASENSITIVE 2.93 uIU/mL (0.36-3.74)
[2023-07-30 14:08] VITALS: BP 153/93; PULSE 67
== END 2023-07-30 14:36 ==
LOC: MW.ED 10:01
DX: S06.6X0A Traumatic subarachnoid hemorrhage without loss of consciousness, initial encounter (principal); S52.502A Unspecified fracture of the lower end of left radius, initial encounter for closed fracture; I10 Essential (primary) hypertension; K21.9 Gastro-esophageal reflux disease without esophagitis; Z79.82 Long term (current) use of aspirin; Z79.899 Other long term (current) drug therapy; Z91.012 Allergy to eggs; Z91.030 Bee allergy status; Z91.048 Other nonmedicinal substance allergy status; Z91.040 Latex allergy status; Z87.891 Personal history of nicotine dependence; Z91.018 Allergy to other foods; W10.9XXA Fall (on) (from) unspecified stairs and steps, initial encounter; Y93.01 Activity, walking, marching and hiking
CPT/HCPCS: 36415; 70450; 71045; 72125; 72170; 73030; 73070; 73110; 73562; 80053; 83735; 84443; 84484; 85025; 85610; 85730; 93005; 99285; A9270; 93010

== ENCOUNTER 2023-07-31 23:32 | Emergency (ER) | payer MEDICARE, BC ==
[2023-08-01 00:39] LABS: BASOPHILS PERCENT AUTO 0.2 % (0.0-1.5); EOSINOPHILS ABSOLUTE AUTO 0.1 K/uL (0.0-0.7); EOSINOPHILS PERCENT AUTO 1.1 % (0.0-7.0); HEMATOCRIT 35.7 % (36.0-46.0); HEMOGLOBIN 11.5 g/dL (12.0-16.0); LYMPHOCYTES PERCENT AUTO 11.6 % (16.0-40.0); MEAN CORPUSCULAR HEMOGLOBIN 29.8 pg (27.0-32.0); MEAN CORPUSCULAR HGB CONC 32.2 g/dL (31.0-37.0); MEAN CORPUSCULAR VOLUME 92.5 fL (80.0-98.0); MONOCYTES ABSOLUTE AUTO 0.7 K/uL (0.0-0.8); MONOCYTES PERCENT AUTO 8.4 % (0.0-15.0); NEUTROPHILS ABSOLUTE AUTO 6.7 K/uL (1.4-5.7); NEUTROPHILS PERCENT AUTO 78.7 % (48.0-80.0); PLATELET COUNT,PLT 271 K/uL (150-400); RED BLOOD CELL COUNT 3.86 M/uL (4.30-5.90); WHITE BLOOD CELL COUNT,WBC 8.53 K/uL (4.0-11.0)
[2023-08-01 00:43] LABS: CALCIUM 8.4 mg/dL (8.5-10.1); CARBON DIOXIDE,CO2 29.4 mmol/L (21.0-32.0); CREATININE 1.1 mg/dL (0.6-1.0); EST CRCL DRUG DOSING (CG) 32.46 mL/min; POTASSIUM,K 4.5 mmol/L (3.5-5.1)
[2023-08-01 02:10] VITALS: PULSE 70
[2023-08-01 08:40] VITALS: BP 108/68
== END 2023-08-01 09:43 | disposition home or self-care (01) ==
LOC: MW.ED 23:32
DX: R09.02 Hypoxemia (principal); T42.8X5A Adverse effect of antiparkinsonism drugs and other central muscle-tone depressants, initial encounter; I10 Essential (primary) hypertension; Z79.82 Long term (current) use of aspirin; Z79.899 Other long term (current) drug therapy; Z91.012 Allergy to eggs; Z91.018 Allergy to other foods; Z91.030 Bee allergy status; Z91.040 Latex allergy status; Z91.048 Other nonmedicinal substance allergy status
CPT/HCPCS: 36415; 80048; 85025; 93005; 99283; 99285

== ENCOUNTER 2023-08-10 18:13 | Observation (INO) | payer MEDICARE, BC ==
[2023-08-10] MEDS ORDERED: Sodium Chloride 0.9% 2.5 ML Syringe FLUSH PRN (18:24)
[2023-08-10] MEDS ORDERED: Sodium Chloride 0.9% 10 ML Syringe FLUSH PRN (18:24)
[2023-08-10 19:59] LABS: BASOPHILS ABSOLUTE AUTO 0.05 K/uL (0.00-0.20); BASOPHILS PERCENT AUTO 0.6 % (0.0-1.0); EOSINOPHILS ABSOLUTE AUTO 0.16 K/uL (0.00-0.45); HEMATOCRIT 37.4 % (37.0-47.0); HEMOGLOBIN 12.4 g/dL (12.0-16.0); IMMATURE GRAN ABSOLUTE AUTO 0.03 K/uL (0.00-0.05); IMMATURE GRAN PERCENT AUTO 0.4 % (0.0-0.4); LYMPHOCYTES PERCENT AUTO 20.8 % (24.0-44.0); MEAN CORPUSCULAR HEMOGLOBIN 29.8 pg (28.0-32.0); MEAN CORPUSCULAR HGB CONC 33.2 g/dL (32.0-36.0); MEAN CORPUSCULAR VOLUME 89.9 fL (83.0-99.0); MEAN PLATELET VOLUME 9.4 fL (9.4-12.3); MONOCYTES ABSOLUTE AUTO 0.64 K/uL (0.00-0.80); MONOCYTES PERCENT AUTO 7.8 % (0.0-8.0); NEUTROPHILS ABSOLUTE AUTO 5.6 K/uL (1.8-7.7); NEUTROPHILS PERCENT AUTO 68.4 % (41.0-71.0); PLATELET COUNT,PLT 337 K/uL (150-400); RED BLOOD CELL COUNT 4.16 M/uL (4.10-5.30); WHITE BLOOD CELL COUNT,WBC 8.19 K/uL (3.9-11.3)
[2023-08-10 20:02] LABS: BASE EXCESS VENOUS 6.1 (-2.0-3.0); PH,VENOUS 7.41 (7.31-7.41)
[2023-08-10] MEDS ORDERED: Labetalol 100 MG/20 ML MDV IVPUSH PRN (20:14)
[2023-08-10 20:29] LABS: A/G RATIO 0.9 (0.9-1.6); ALBUMIN 3.6 g/dL (3.4-5.0); BILIRUBIN TOTAL 0.9 mg/dL (0.2-1.0); CALCIUM 9.4 mg/dL (8.5-10.1); CARBON DIOXIDE,CO2 31.9 mmol/L (21.0-32.0); CREATININE 0.8 mg/dL (0.6-1.0); EST CRCL DRUG DOSING (CG) 44.63 mL/min; POTASSIUM,K 5.4 mmol/L (3.5-5.1); PROTEIN TOTAL,TP 7.7 g/dL (6.4-8.2)
[2023-08-10] MEDS ORDERED: Ondansetron 4 MG/2 ML SDV IVPUSH PRN (23:57)
[2023-08-11 10:19] LABS: BASOPHILS ABSOLUTE AUTO 0.05 K/uL (0.00-0.20); BASOPHILS PERCENT AUTO 0.7 % (0.0-1.0); EOSINOPHILS ABSOLUTE AUTO 0.05 K/uL (0.00-0.45); EOSINOPHILS PERCENT AUTO 0.7 % (0.0-6.0); HEMATOCRIT 34.3 % (37.0-47.0); HEMOGLOBIN 11.5 g/dL (12.0-16.0); IMMATURE GRAN ABSOLUTE AUTO 0.02 K/uL (0.00-0.05); IMMATURE GRAN PERCENT AUTO 0.3 % (0.0-0.4); MEAN CORPUSCULAR HEMOGLOBIN 29.6 pg (28.0-32.0); MEAN CORPUSCULAR HGB CONC 33.5 g/dL (32.0-36.0); MEAN CORPUSCULAR VOLUME 88.4 fL (83.0-99.0); MEAN PLATELET VOLUME 9.4 fL (9.4-12.3); MONOCYTES ABSOLUTE AUTO 0.57 K/uL (0.00-0.80); MONOCYTES PERCENT AUTO 7.6 % (0.0-8.0); NEUTROPHILS ABSOLUTE AUTO 5.3 K/uL (1.8-7.7); NEUTROPHILS PERCENT AUTO 70.7 % (41.0-71.0); PLATELET COUNT,PLT 346 K/uL (150-400); RED BLOOD CELL COUNT 3.88 M/uL (4.10-5.30); WHITE BLOOD CELL COUNT,WBC 7.51 K/uL (3.9-11.3)
[2023-08-11 10:40] LABS: A/G RATIO 0.9 (0.9-1.6); ALBUMIN 3.3 g/dL (3.4-5.0); BILIRUBIN TOTAL 0.9 mg/dL (0.2-1.0); CALCIUM 9.1 mg/dL (8.5-10.1); CARBON DIOXIDE,CO2 30.2 mmol/L (21.0-32.0); CREATININE 0.8 mg/dL (0.6-1.0); EST CRCL DRUG DOSING (CG) 44.63 mL/min; POTASSIUM,K 3.9 mmol/L (3.5-5.1); PROTEIN TOTAL,TP 7.2 g/dL (6.4-8.2)
[2023-08-11 15:33] VITALS: BP 117/65; PULSE 63
== END 2023-08-11 15:25 ==
LOC: MW.ED 18:13 → MW.MS 20:03
PROVIDERS: ADMIT Family Medicine; ATTEND Family Medicine
DX: S06.5XAA Traumatic subdural hemorrhage with loss of consciousness status unknown, initial encounter (principal); G93.5 Compression of brain; I10 Essential (primary) hypertension; F41.9 Anxiety disorder, unspecified; Z87.891 Personal history of nicotine dependence; Z90.49 Acquired absence of other specified parts of digestive tract; Z90.710 Acquired absence of both cervix and uterus; Z79.82 Long term (current) use of aspirin; Z79.899 Other long term (current) drug therapy; Z91.040 Latex allergy status; Z88.8 Allergy status to other drugs, medicaments and biological substances; Z91.018 Allergy to other foods; W10.8XXA Fall (on) (from) other stairs and steps, initial encounter
CPT/HCPCS: 36415; 70450; 80053; 82803; 84484; 85025; 93005; 99291; G0378; G0390; J3490; 93010; 99223; 99239

== ENCOUNTER 2023-08-11 22:32 | Emergency (ER) | payer MEDICARE, BC ==
[2023-08-11] MEDS ORDERED: Morphine 10 MG/0.5 ML Oral Syringe PO ONE ×2 (22:45→23:35)
[2023-08-12] MEDS ORDERED: LORazepam ORAL Concentrate 1MG/0.5ML U/D PO STA ×2 (00:29→01:38)
[2023-08-12] MEDS ORDERED: Morphine 10 MG/0.5 ML Oral Syringe PO ONE (06:09)
[2023-08-12 08:37] VITALS: BP 113/71; PULSE 80
== END 2023-08-12 08:38 ==
LOC: MW.ED 22:32
DX: Z51.5 Encounter for palliative care (principal); Z91.09 Other allergy status, other than to drugs and biological substances; Z91.012 Allergy to eggs; Z91.040 Latex allergy status; Z88.8 Allergy status to other drugs, medicaments and biological substances; Z91.018 Allergy to other foods; I10 Essential (primary) hypertension
CPT/HCPCS: 99284; A9270; J3490